=== PATIENT | male | born 1955 | race Caucasian/White ===

== ENCOUNTER 2016-12-07 07:20 | Day surgery (SDC) | payer BC ==
[2016-12-05 14:01] VITALS: BMI 23.0
[2016-12-07] MEDS ORDERED: PROPOFOL 20 ML ONE ×2 (07:23)
[2016-12-07] MEDS ORDERED: LIDOCAINE HCL/PF 2% SDV 5ML VIAL ONE (07:31)
[2016-12-07 07:36] VITALS: TEMP 97.6
[2016-12-07 09:26] VITALS: BP 100/66; PULSE 59
== END 2016-12-07 09:15 | disposition home or self-care (01) ==
LOC: FASU-ENDO 07:20
PROVIDERS: ATTEND Internal Medicine Gastroenterology
PROC: 0DJD8ZZ Inspection of Lower Intestinal Tract, Via Natural or Artificial Opening Endoscopic (ICD-10-PCS; principal; 2016-12-07 08:24)
DX: Z12.11 Encounter for screening for malignant neoplasm of colon (principal); K57.30 Diverticulosis of large intestine without perforation or abscess without bleeding